=== PATIENT | female | born 1970 | race Caucasian/White ===

== ENCOUNTER 2016-09-11 00:02 | Emergency (ER) | payer MEDICARE, OTHER ==
[2016-09-11 05:54] LABS: HEMOGLOBIN 10.7 gm/dl (12.3-15.3); RED BLOOD COUNT 3.75 M/UL (4.00-5.10); WHITE BLOOD COUNT 14.4 K/UL (4.5-11.0)
[2016-09-11 06:12] LABS: BUN/CREATININE RATIO 20 (0-10)
== END 2016-09-11 09:47 | disposition home or self-care (01) ==
LOC: ER1 00:02
PROVIDERS: Physician Assistant
DX: R06.00 Dyspnea, unspecified (principal); N39.0 Urinary tract infection, site not specified; I10 Essential (primary) hypertension; E03.9 Hypothyroidism, unspecified; J45.909 Unspecified asthma, uncomplicated
CPT/HCPCS: 36415; 36600; 71010; 80053; 81001; 82550; 82553; 82803; 83605; 83874; 84484; 85025; 87040; 87086; 93005; 94664; 96374; 99285